=== PATIENT | male | born 2000 | race Caucasian/White ===

== ENCOUNTER 2023-05-22 01:45 | Day surgery (SDC) | payer OTHER, MEDICAID, SELFPAY ==
[2023-05-13 11:57] VITALS: BMI 30.2
[2023-05-22 12:22] VITALS: BP 137/83; PULSE 67; RESP 16; TEMP 36.5; O2SAT 98
[2023-05-22] MEDS: LACTATED RINGERS 1,000 ML 150 ML IV CONT (12:33)
--- NOTE | 2023-05-22 12:41 | WPDANESEPPF ---
Anes - Initial Pre Proc Eval Procedure: Operation Date: 05/22/23 13:15 Proposed Procedures p Colonoscopy - Bliane Lal MD Date/Time: 05/22/23 12:41 Surgeon: Blaine Lal MD Pre Op Diagnosis: Other fecal abnormalities,Other specified symptoms Patient Data Age: 22 Gender: M Height: 1.88 m Weight: 104.9 kg Last Vital Signs Temp 97.7 F 05/22/23 12:22 Pulse 67 05/22/23 12:22 Resp 16 05/22/23 12:22 BP 137/83 05/22/23 12:22 Pulse Ox 98 05/22/23 12:22 O2 Del Method Room Air 05/22/23 12:22 Allergies Allergy/AdvReac Type Severity Reaction Status Date / Time NKDA Allergy Unknown Unknown Uncoded 05/22/23 12:18 NKFA Allergy Unknown Unknown Uncoded 05/22/23 12:18 Home Medications Medication Instructions Recorded Confirmed Type fluvoxamine 100 mg 250 mg PO QHS 03/05/23 05/22/23 History capsule,extended release 24 hr Patient hx anesthesia problems: none Family hx anesthesia problems: none Results Review: All pre-operative results and documents have been reviewed as part of the pre-operative evaluation. [facility] Past Medical History Medical History Ankylosing spondylitis Surgical History Surgical History H/O colonoscopy Family History Family History Father Hypertension Social History Social History Smoking status: Never smoker Alcohol intake: never Substance use: never Substance use type: does not use Living arrangements: with family Spiritual care concerns: No Anes - Eval Final PreProcedure Day of Procedure 05/22/23 12:41 Patient weight: normal Heart: regular rate and rhythm Lungs: clear to auscultation Airway: Mallampati scale class II Neurological: alert and oriented Last oral intake: >/= 8 hours ASA classification: II Emergent: no Anesthetic plan: proceed Anesthesia type and monitoring: general GIVS and standard monitoring Results Review: All pre-operative results and documents have been reviewed as part of the pre-operative evaluation. Informed Consent: The patient's anesthetic plan and its attendant risks and benefits were discussed with the patient/family/POA. Questions were solicited and answers provided to the satisfaction of the patient/family/POA.
--- NOTE | 2023-05-22 13:27 | PM.HPGS ---
History of Present Illness History of Present Illness Consent: Risks, benefits, and alternatives have been discussed and questions answered. Patient agrees to proceed with procedure. Chief complaint: Other fecal abnormalities,Other specified symptoms Narrative: Murphy Burrell is a 22 year old male with ibs alternating diarrhea and constipation, tried samples of linzess but gave him diarrhea, he is not taking anything now. Had colonoscopy few years ago and apparently negative, celiac serology negative Review of Systems Constitutional: Constitutional: Denies headache(s) and Denies weakness Eyes: Eyes: Denies blurry vision ENT: Reports Normal hearing present, Denies headache(s) and Denies neck pain Cardiovascular: Cardiovascular: Denies chest pain and Denies dyspnea Respiratory: Respiratory: Denies dyspnea Gastrointestinal: Gastrointestinal: Reports no additional gastrointestinal complaints Genitourinary: Genitourinary: Denies dysuria Musculoskeletal: Musculoskeletal: Denies neck pain Integumentary/Breasts: Skin/Breast: Denies dry skin Neurologic: Reports Normal hearing present, Denies headache(s) and Denies weakness Psychiatric: Psychiatric: Denies anxiety Endocrine: Endocrine: Denies change in body appearance Hematologic/Lymphatic: Hematologic/Lymphatic: Denies easy bleeding Allergic/Immunologic: Allergic/Immunologic: Denies urticaria PMFSH Past Medical History Medical History (Updated 05/22/23 @ 13:28 by Blaine Lal MD) Ankylosing spondylitis IBS (irritable bowel syndrome) Surgical History Surgical History H/O colonoscopy Family History Family History Father Hypertension Social History Social History Smoking status: Never smoker Alcohol intake: never Substance use: never Substance use type: does not use Living arrangements: with family Spiritual care concerns: No Meds Home Medications and Allergies Home Medications Medication Instructions Recorded Confirmed Type fluvoxamine 100 mg 250 mg PO QHS 03/05/23 05/22/23 History capsule,extended release 24 hr Allergies Allergy/AdvReac Type Severity Reaction Status Date / Time NKDA Allergy Unknown Unknown Uncoded 05/22/23 12:18 NKFA Allergy Unknown Unknown Uncoded 05/22/23 12:18 Vital Signs Vital Signs - 24 hr 05/22/23 12:22 Temperature 97.7 F Pulse Rate 67 Respiratory Rate 16 Blood Pressure 137/83 Pulse Oximetry 98 Oxygen Delivery Room Air Exam Const: General: comfortable and no acute distress HENMT: Face/Nose/Sinus: Normal nares present Eyes: General: appearance normal, both eyes and all related structures Neck: Neck: no JVD Resp: Auscultation: clear to auscultation bilaterally Cardio: Rate: regular rate Rhythm: regular rhythm GI: Inspection: non-distended GI Palp: Yes Soft to palpation Skin: General skin exam: normal color Neuro: General: gait normal Speech: normal speech Extrem: General: normal to inspection Psych: Mental Status: mental status grossly normal Assessment and Plan Assessment and plan (1) IBS (irritable bowel syndrome): Code(s): K58.9 - Irritable bowel syndrome without diarrhea Status: Acute Assessment and Plan: colonoscopy with random colon bx
[2023-05-22 13:44] VITALS: BP 116/70; PULSE 69; RESP 16; O2SAT 97
[2023-05-22 13:54] VITALS: BP 118/71; PULSE 66; RESP 16; O2SAT 98
[2023-05-22 14:04] VITALS: BP 127/81; PULSE 61; RESP 15; O2SAT 99
== END 2023-05-22 14:09 | disposition home or self-care (01) ==
PROVIDERS: PCP Family Medicine; Visit Provider Internal Medicine Gastroenterology
PROC: 0DJD8ZZ Inspection of Lower Intestinal Tract, Via Natural or Artificial Opening Endoscopic (ICD-10-PCS; CPT 45378; principal; 2023-05-22 13:15)
DX: R19.7 Diarrhea, unspecified (principal); K59.00 Constipation, unspecified; K63.5 Polyp of colon
CPT/HCPCS: 45380; 45385; 88305; J2704; J7120